=== PATIENT | female | born 1980 | race Caucasian/White ===

== ENCOUNTER 2018-07-17 07:04 | Inpatient (IN) ==
[2018-07-17] MEDS ORDERED: ONDANSETRON INJ 2 MG/ML 2 ML VIAL IV STA ×2 (07:12→08:57)
[2018-07-17] MEDS ORDERED: SODIUM CHLORIDE 0.9% 1000ML 2,000 ML IV SCH (07:15)
[2018-07-17] MEDS ORDERED: PROMETHAZINE 25 MG/51 ML BAG IV STA (07:33)
[2018-07-17 07:55] LABS: Basophils # (auto) 0.01 K/uL (0-0.2); Eosinophils # (auto) 0.22 K/uL (0-0.5); Eosinophils % (auto) 1.1 %; Hemoglobin 15.8 g/dL (12.0-16.0); Immature Granulocytes # (auto) 0.07 K/uL (0.00-0.02); Immature Granulocytes % (auto) 0.3 %; Lymphocytes # (auto) 0.44 K/uL (1.2-3.4); Lymphocytes % (auto) 2.1 %; Mean Corpuscular Hgb Conc 35.1 g/dL (32-36); Mean Corpuscular Volume 87.5 fL (80-100); Mean Platelet Volume 9.9 fL (7.4-10.4); Monocytes # (auto) 0.92 K/uL (0.11-0.59); Monocytes % (auto) 4.4 %; Neutrophils # (auto) 19.05 K/uL (1.4-6.5); Neutrophils % (auto) 92.1 %; Platelet Count 371 K/uL (130-400); RDW Coefficient of Variation 12.9 % (11.5-14.5); RDW Standard Deviation 41.2 fL (36.4-46.3); Red Blood Count 5.14 M/uL (4.2-5.4); White Blood Count 20.71 K/uL (4.8-10.8)
[2018-07-17 08:21] LABS: Albumin Globulin Ratio 0.9 (0.9-2); Albumin Level 3.8 gm/dl (3.4-5.0); BUN Creatinine Ratio 17.9 (10-20); Bilirubin,Total 0.4 mg/dl (0.2-1); Calcium 8.9 mg/dl (8.5-10.1); Creatinine Clr Calc Pharmacy 90.2 ml/min; Est GFR (African American) 92.1; Est GFR (Non-African American) 79.5; Globulin 4.1 gm/dl (2.5-4.0); Total Protein 7.9 gm/dl (6.4-8.2)
[2018-07-17] MEDS ORDERED: SODIUM CHLORIDE 0.9% 1000ML 1,000 ML IV ONE (08:57)
--- NOTE | 2018-07-17 09:01 | Emergency Department Note ---
ED Visit Note I took a history and examined the patient. I also coordinated management of the patient with Dr. Bermudez. .
[2018-07-17 09:18] LABS: Potassium 3.9 mmol/L (3.5-5.1)
[2018-07-17 09:35] LABS: Appearance Urine Clear (Clear); Bilirubin Urine Negative (Negative); Blood Urine Negative (Negative); Color Urine Yellow; Glucose Urine UA Negative (Negative); Ketones Urine Trace (Negative); Leukocyte Esterase Urine Negative (Negative); Nitrite Urine Negative (Negative); Protein Urine Negative (Negative); Specific Gravity Urine 1.016 (1.000-1.030); Urobilinogen Urine Negative (Negative); pH Urine 8.5 (4.5-7.5)
--- NOTE | 2018-07-17 10:15 | XRay Report ---
XR abdomen 2V w PA chest CLINICAL HISTORY: abd pain pain COMPARISON STUDY: 10/06/2014 FINDINGS: The soft tissues, psoas shadows, renal outlines and intestinal gas pattern appear normal. T here is no evidence for bowel obstruction. There is no evidence for free intraperitoneal air. No abno rmal abdominal calcifications are seen. A frontal view of the chest was performed and is unremarkable . IMPRESSION: Normal study. The above report was generated using voice recognition software. It may contain grammatical, syntax or spelling errors. Electronically signed by: Manuel Lester M.D. 07/17/2018 10:14 AM
[2018-07-17] MEDS ORDERED: IOVERSOL 100ml IV PRN (11:09)
[2018-07-17] MEDS ORDERED: PROCHLORPERAZINE 5 MG in SYRINGE 4 ML IV ONE (11:12)
[2018-07-17] MEDS ORDERED: DiphenhydrAMINE HCL 50 MG/ML VIAL IV STA (11:12)
--- NOTE | 2018-07-17 11:22 | CT Scan Report ---
CT abd pelvis IV con only CLINICAL HISTORY: Vomiting and abdominal pain COMPARISON STUDY: 04/16/2010 TECHNIQUE: The patient was scanned in a dynamic helical fashion during intravenous administration of 94 cc of Optiray 320. A dose lowering technique was utilized adhering to the principles of ALARA. CT DOSE: 764.48 mGy.cm FINDINGS: Lower chest: The heart is normal in size and configuration, without pericardial effusion. The lung ba ses and pleural spaces are clear. Liver: The contrast-enhanced liver is normal in size, contour, and attenuation. There is no intrahepa tic biliary ductal dilatation. The hepatic veins and portal veins are patent. Gallbladder: Unremarkable. Spleen: The spleen is borderline enlarged measuring 12.4 cm Pancreas: Unremarkable. Adrenal glands: Unremarkable. Kidneys: There is symmetric renal cortical enhancement. The kidneys are normal in size without hydron ephrosis. Bowel: There are multiple fluid-filled small bowel loops, without evidence for a transition. This is a nonspecific finding which could indicate a mild enteritis. There is no current evidence for a bowel obstruction. There is no pneumatosis. There is no pathologic interloop fluid. The appendix appears n ormal. There is no evidence of acute diverticulitis. Borderline gastric wall thickening may be second radha to a nondistended stomach. Peritoneum: There is no intraperitoneal free air or abdominal ascites. There is a small fat-containin g umbilical hernia. Vasculature: The abdominal aorta is normal in course and caliber. Adenopathy: None. Pelvic viscera: The bladder, and pelvic viscera are unremarkable. Skeletal structures: No destructive osseous lesions are seen. There is a stable L2 vertebral body [place] IMPRESSION: 1. No evidence of bowel obstruction. No evidence of free air 2. Normal appendix. No evidence of acute diverticulitis. 3. Multiple fluid-filled small bowel loops without evidence for a transition zone. The findings are n onspecific but could indicate a mild ileus or enteritis 4. Borderline gastric wall thickening Electronically signed by: Hiro Keith M.D. 07/17/2018 11:20 AM
[2018-07-17] MEDS ORDERED: PROCHLORPERAZINE 5 MG/ML 2 ML VIAL ONE (11:29)
--- NOTE | 2018-07-17 12:27 | History & Physical Report ---
Date of Service July 17, 2018 Assessment & Plan (1) Vomiting and diarrhea: (2) Cyclical vomiting: Pt presented to ER with onset of recurrent vomiting and 6 episodes diarrhea started last night. Diffuse abdominal cramping which improved in ER. Afebrile, P: 108, R: 16, BP: 131/87, 100% on RA In ER was given Compazine, Benadryl, Zofran x2 doses, Phenergan, 2 NSS with continued nausea and vomiting. CT ABD/PELVIS: 1. No evidence of bowel obstruction. No evidence of free air 2. Normal appendix. No evidence of acute diverticulitis. 3. Multiple fluid-filled small bowel loops without evidence for a transition zone. The findings are nonspecific but could indicate a mild ileus or enteritis 4. Borderline gastric wall thickening -admit med surg -NPO for now -IVF -pending c-diff and stool culture -zofran IV, phenergan rectal prn vomiting -continue amytriptyline and clonazepam HS -will try capsaicin cream to abdomen with pt using marijuana yesterday -GI consult, appreciate recommendations -monitor CBC, BMP (3) Leukocytosis: WBC: 20. Pt afebrile. CXR: no infiltrate. May be secondary to vomiting/stress but will r/o underlying infectious source -urine culture, c-diff, stool cultures pending -blood cultures pending -monitor CBC (4) Elevated glucose: Random glucose: 167 A1c in am (5) Anxiety and depression: -continue clonazepam HS DVT Prophylaxis -SCDs Follows with Dr Chris for routine care Pt was seen with Dr Jj. See addendum History of Present Illness Chief Complaint: Vomiting Primary Care Provider: Keshia Ospina Pt is 37 y/o F with PMH cyclical vomiting, anxiety, depression presented to ER with c/o vomiting and diarrhea. States approx 2 am today started with vomiting every 10-15 minutes reports 6 episodes of loose stools. Patient states also having diffuse abdominal cramping. Reports since in ER has not had any further diarrhea and reports abdomen is feeling better just feels "sore" which she thinks is from vomiting. She tried her zofran and phenergen orally without reli ef of vomiting. Pt states last night ate a hamburger for dinner. Denies recent travel. States at work some people had GI illness with N/V/D. Was on zithromax in 06/2018. Denies other antibiotic use. Pt states has been awhile since she had recurrences of cyclical vomiting. In past has followed with GI. Pt reports smokes marijauna approx once a month to help increase appetite and states Used marijuana yesterday and feels her vomiting symptoms are worse since. Reports that today she feels dizzy. Denies fever/chills, diaphoresis, hematemesis, melena, hematochezia, [place], syncope, vision changes, neck pain, CP, SOB, orthopnea, palpitations, cough, sore throat, choking, otalgia, rhinorrhea, paresthesias, weakness, extremity weakness, extremity edema, rashes, urinary symptoms. In ER was given compazine, benadryl IV, zofran x 2 doses, phenergan, 2L NSS. She had decreased abdominal cramping, however continued nausea and vomiting. Allergies Allergy/AdvReac Type Severity Reaction Status Date / Time metoclopramide Allergy Intermediate Itching/Upset Verified 07/17/18 09:04 stomach amoxicillin Allergy Mild UNK Verified 07/17/18 09:04 miconazole Allergy Unknown ALLERGIC Verified 07/17/18 09:04 TO TOPICAL YEAST INFECTION CREAM tioconazole Allergy Unknown REACTION Verified 07/17/18 09:04 TYPE NOT SPECIFIED STEROIDS AdvReac Unknown progestrone Uncoded 07/17/18 09:04 deficiency, causes Home Medications Home Medications Medication Instructions Recorded Confirmed Type acetaminophen 325 mg NJ Q6H PRN 07/17/18 07/17/18 History amitriptyline 25 mg PO HS 07/17/18 07/17/18 History clonazepam 0.5 mg PO HS 07/17/18 07/17/18 History clonazepam 0.5 mg PO UD PRN 07/17/18 07/17/18 History promethazine 25 mg PO Q6H PRN 07/17/18 07/17/18 History promethazine 25 mg NJ Q6H PRN 07/17/18 07/17/18 History ondansetron 8 mg PO Q8H PRN 7 Days #20 tab 07/20/18 Rx pantoprazole 40 mg PO BID 30 Days #60 tab 07/20/18 Rx Past Med/Surg History Medical History Elevated glucose (Chronic) Anxiety and depression (Chronic) Cyclic vomiting syndrome (Chronic) Surgical History History of esophagogastroduodenoscopy (EGD) (Chronic) History of nasal septoplasty (Chronic) Family History Other Lola's disease Social History Preferred Language: Kiswahili Beliefs That Will Affect Care: None Current Living Situation: Family Current Living Situation Comment: has daughter at home Other Information That Helps Us Care for You: No Feels Safe at Home: Yes Safety Concerns: Feels Safe At This Time Smoking Status: Never smoker Hx Alcohol Use: No Hx Substance Use: Yes Review of Systems All systems reviewed & are unremarkable except as noted in HPI & below Physical Exam Vital Signs (Past 24 Hours): Last Vital Signs Temp 36.6 C 07/17/18 07:06 Pulse 119 H 07/17/18 11:10 Resp 20 07/17/18 10:41 BP 160/111 H 07/17/18 11:10 Pulse Ox 100 07/17/18 11:10 Physical Exam: General: mild distress secondary to nausea and vomiting, WDWN Head: normocephalic, atraumatic Eyes: PERRL, EOM's intact, conjunctiva non-injected, anicteric ENT: normal inspection external ears, nose, mucous membranes dry Neck: supple, trachea midline, non-tender Lungs: clear, no respiratory distress, no wheezing/rhonchi/rales CV: RRR, no murmur, no pretibial edema Abd: normal BS, soft, diffuse tenderness to palpation Ext: no cyanosis, no calf tenderness Neuro: A&O x 3, no focal deficits noted, normal affect Skin: warm, dry Results & Data Laboratory Results Short CBC 07/17/18 Range/Units 07:42 WBC 20.71 H (4.8-10.8) K/uL Hgb 15.8 (12.0-16.0) g/dL Hct 45.0 (37-47) % Plt Count 371 (130-400) K/uL BMP 07/17/18 07/17/18 07:42 08:52 Sodium 137 Potassium 3.9 Chloride 107 Carbon Dioxide 20 L BUN 16 Creatinine 0.91 Glucose 167 H Calcium 8.9 Liver Function 07/17/18 07/17/18 Range/Units 07:42 08:52 Total Bilirubin 0.4 (0.2-1) mg/dl AST 13 L (15-37) U/L ALT 20 (12-78) U/L Alkaline Phosphatase 108 (45-117) U/L Albumin 3.8 (3.4-5.0) gm/dl Urine 07/17/18 Range/Units 09:25 Urine Color Yellow Urine Appearance Clear (Clear) Urine pH 8.5 H (4.5-7.5) Ur Specific [place] 1.016 (1.000-1.030) Urine Protein Negative (Negative) Urine Glucose (UA) Negative (Negative) Diagnostic Findings CXR/ABD XRAY: IMPRESSION: Normal study. CT ABD/PELVIS: IMPRESSION: 1. No evidence of bowel obstruction. No evidence of free air 2. Normal appendix. No evidence of acute diverticulitis. 3. Multiple fluid-filled small bowel loops without evidence for a transition zone. The findings are nonspecific but could indicate a mild ileus or enteritis 4. Borderline gastric wall thickening Supervising Physician Co-Signing Physician Notes 1. Nausea and vomiting-cyclical, poss enteritis vs ileus 2. Leukocytosis 3. Glucosuria 4. Obesity 5. Marajuana use 37 yo F with a h/o cyclical vomiting presents with two days of persistent nausea and vomiting with diarrhea. She has a h/o cyclical vomiting which reportedly is precipitated from stress, extreme excitement or after antibiotic use. She recently used azithromycin for an ear infection last month. 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 She recently traveled to [place] for her daughters friend birthday and returned yesterday. She reports smoking marajuana occasionally and yesterday. She denies any abdominal pain and physical exam is unremarkable other than an obese, ill-appearing female. Mother and daughter are present at the bedside. We discussed the CT results. Cont plan as above including bowel rest for now, then advancing diet as tolerated. Agree with checking for c-diff with h/o abx use. Agree with capsaicin to [place] nausea in setting of recent MJ use. Screen fro DMII with presence of glucosuria and h/o increased thirst. Appreciate GI recs. DO [place] (1) Leukocytosis Leukocytosis type: unspecified Qualified Code(s): D72.829 - Elevated white blood cell count, unspecified (2) Cyclical vomiting Nausea presence: with nausea Vomiting Intractability: intractable Qualified Code(s): G43.A1 - Cyclical vomiting, intractable
[2018-07-17] MEDS ORDERED: ACETAMINOPHEN 325 MG TAB PO PRN (14:01)
[2018-07-17] MEDS ORDERED: ONDANSETRON INJ 2 MG/ML 2 ML VIAL IV PRN (14:01)
[2018-07-17] MEDS ORDERED: PROMETHAZINE HCL 25 MG SUPP PR PRN (14:01)
--- NOTE | 2018-07-17 14:07 | Emergency Department Note ---
Entered by Ethel Wren acting as a scribe for History of Present Illness General Chief complaint: Vomiting Stated complaint: VOMITING,CHILLS,HOT/COLD Time Seen by Provider: 07/17/18 07:12 Source: patient History of Present Illness Provider complaint: vomiting and diarrhea Onset (ago): hour(s) (5.5) Location: abdomen Severity: similar to prior episodes Maximum Pain Intensity: 7 Associated symptoms: + other (nausea, abdominal pain, runny nose) Treatments prior to arrival: other (Zofran, Phenergan) The patient is a 37 year old female who presents to the Emergency Room with complaints of persistent vomiting and diarrhea beginning 5.5 hours ago. She reports she began feeling nauseous yesterday morning. The patient states she has been vomiting about every 10 minutes, mostly bile. She notes she has had about 6 episodes of diarrhea. The patient reports intermittent lower abdominal pain, that occasionally radiates to her back. She notes she urinated herself when trying to vomit. The patient states she has a runny nose. She notes her symptoms are similar to previous episodes, and reports a history of cyclic vomiting. The patient denies pain or burning with urination. She reports she has been taking Zofran and Phenergan for her symptoms. Home Medications Home Medications Medication Instructions Recorded Confirmed Type acetaminophen 325 mg UT Q6H PRN 07/17/18 07/17/18 History amitriptyline 25 mg PO HS 07/17/18 07/17/18 History clonazepam 0.5 mg PO HS 07/17/18 07/17/18 History clonazepam 0.5 mg PO UD PRN 07/17/18 07/17/18 History ondansetron 8 mg PO Q8H PRN 07/17/18 07/17/18 History promethazine 25 mg PO Q6H PRN 07/17/18 07/17/18 History promethazine 25 mg UT Q6H PRN 07/17/18 07/17/18 History Allergies Allergy/AdvReac Type Severity Reaction Status Date / Time metoclopramide Allergy Intermediate Itching/Upset Verified 07/17/18 09:04 stomach amoxicillin Allergy Mild UNK Verified 07/17/18 09:04 miconazole Allergy Unknown ALLERGIC Verified 07/17/18 09:04 TO TOPICAL YEAST INFECTION CREAM tioconazole Allergy Unknown REACTION Verified 07/17/18 09:04 TYPE NOT SPECIFIED STEROIDS AdvReac Unknown progestrone Uncoded 07/17/18 09:04 deficiency, causes Past Med/Surg History Medical History Cyclic vomiting syndrome (Chronic) Social History Preferred Language: Turkmen Communication Ability: Effective Mud Trucker Required: No Beliefs That Will Affect Care: None Current Living Situation: Family Current Living Situation Comment: has daughter at home Other Information That Helps Us Care for You: No Feels Safe at Home: Yes Safety Concerns: Feels Safe At This Time Smoking Status: Current some day smoker Hx Alcohol Use: Yes Hx Substance Use: Yes Review of Systems See HPI for pertinent positives & negatives. and A total of 10 systems reviewed and were otherwise negative Physical Exam Vital Signs Vital Signs - 24 hr 07/17/18 07:06 07/17/18 08:05 07/17/18 10:41 Temperature 36.6 C Temperature Source Oral Sepsis Recent Fever Within 48 Hours No Sepsis New/Unexplained Change in Mental Status No Sepsis Action Taken by Nursing No Action Required Pulse Rate 108 H Pulse Rate [Right Finger] 101 H 108 H Pulse Rhythm [Right Finger] Regular Respiratory Rate 16 20 20 Respiratory Effort / Characteristics Non-Labored Non-Labored Spontaneous Respiratory Depth Normal Normal Respiratory Pattern Regular Blood Pressure 131/87 Blood Pressure [Right Arm] 161/116 H 123/86 Blood Pressure Mean 101 Blood Pressure Mean [Right Arm] 131 98 Blood Pressure Position [Right Arm] Pulse Oximetry 100 99 96 Oxygen Delivery Method Room Air Room Air 07/17/18 11:10 07/17/18 12:30 07/17/18 13:00 Temperature Temperature Source Sepsis Recent Fever Within 48 Hours Sepsis New/Unexplained Change in Mental Status Sepsis Action Taken by Nursing Pulse Rate Pulse Rate [Right Finger] 119 H 107 H 107 H Pulse Rhythm [Right Finger] Respiratory Rate 14 Respiratory Effort / Characteristics Respiratory Depth Respiratory Pattern Blood Pressure Blood Pressure [Right Arm] 160/111 H 121/80 124/85 Blood Pressure Mean Blood Pressure Mean [Right Arm] 127 93 98 Blood Pressure Position [Right Arm] Pulse Oximetry 100 99 98 Oxygen Delivery Method Room Air Room Air Room Air 07/17/18 14:01 Temperature 37.2 C Temperature Source Oral Sepsis Recent Fever Within 48 Hours Sepsis New/Unexplained Change in Mental Status Sepsis Action Taken by Nursing Pulse Rate Pulse Rate [Right Finger] 103 H Pulse Rhythm [Right Finger] Respiratory Rate 18 Respiratory Effort / Characteristics Respiratory Depth Respiratory Pattern Blood Pressure Blood Pressure [Right Arm] 123/82 Blood Pressure Mean Blood Pressure Mean [Right Arm] 95 Blood Pressure Position [Right Arm] Lying Pulse Oximetry 98 Oxygen Delivery Method GENERAL: Sitting up in bed, alert, dry heaving, uncomfortable, non-toxic EYE EXAM: normal conjunctiva. OROPHARYNX: no exudate, no erythema, lips, buccal mucosa, and tongue normal and mucous membranes are dry NECK: supple, no nuchal rigidity, no adenopathy, non-tender LUNGS: Clear to auscultation. Normal chest wall mechanics HEART: no murmurs, S1 normal and S2 normal ABDOMEN: abdomen soft, non-tender, normo-active bowel, sounds, no masses, no rebound or guarding. BACK: Back is symmetrical on inspection and there is no deformity, no midline tenderness, no CVA tenderness. SKIN: no rashes and no bruising UPPER EXTREMITIES: upper extremities are grossly normal. LOWER EXTREMITIES: No pitting edema. NEURO EXAM: Normal sensorium, cranial nerves II-XII grossly intact, normal speech, no gross weakness of arms, no gross weakness of legs. Course ED COURSE: Vital signs were reviewed and showed tachycardia. The patients medical record was reviewed The above diagnostic studies were performed and reviewed. ED treatments and interventions as stated above. 0714:The patient was evaluated in room A9 by Dr. Guzman, the resident under my direction, and a complete history and physical examination were performed. 0727: I evaluated the patient in room A9, and a complete history and physical examination were performed. 1001: I reevaluated the patient and discussed her test results. 1145: I reviewed the patient's case [facility] She will evaluate the patient for further management. 1148: Upon reevaluation, the patient is resting. I discussed my findings with the patient and she understands and agrees with the treatment plan. Based on the patients age, coexisting illnesses, exam and lab findings the decision to treat as an inpatient was made. The patient remained stable while under my care. The patient will be evaluated for further management. Consultations Consultation #1: Katia Guerra PA-C, [facility] hospitalist Time: 11:45 Administered Medications Discontinued Medications Diphenhydramine HCl (Benadryl) 25 mg IV NOW STA Stop: 07/17/18 11:13 Last Admin: 07/17/18 11:36 Dose: 25 mg Documented by: [id number] Sodium Chloride (Nss 1000ml) 2,000 mls @ 999 mls/hr IV .Q2H1M JARON Stop: 07/17/18 09:15 Last Infusion: 07/17/18 09:14 Dose: 0 mls/hr Documented by: [id number] Admin: 07/17/18 07:51 Dose: 999 mls/hr Documented by: [id number] Promethazine HCl (Phenergan) 25 mg in 51 mls @ 204 mls/hr IV NOW STA Stop: 07/17/18 07:47 Last Infusion: 07/17/18 10:41 Dose: 0 mls/hr Documented by: [id number] Admin: 07/17/18 07:52 Dose: 204 mls/hr Documented by: [id number] Sodium Chloride (Nss 1000ml) 1,000 mls @ 999 mls/hr IV .Q1H1M ONE Stop: 07/17/18 09:57 Last Infusion: 07/17/18 10:40 Dose: 0 mls/hr Documented by: [id number] Admin: 07/17/18 09:20 Dose: 999 mls/hr Documented by: [id number] Prochlorperazine 5 mg/ Syringe 5 mls @ 5 mls/min IV ONE ONE Stop: 07/17/18 11:13 Last Admin: 07/17/18 11:36 Dose: 5 mls/min Documented by: [id number] Ioversol (Optiray 320 100ml) 94 ml IV ONCE PRN PRN Reason: Interaction Checking Stop: 07/21/18 11:08 Last Admin: 07/17/18 11:10 Dose: 94 ml Documented by: [id number] Ondansetron HCl (Zofran) 4 mg IV NOW STA Stop: 07/17/18 07:13 Last Admin: 07/17/18 07:51 Dose: 4 mg Documented by: [id number] Ondansetron HCl (Zofran) 4 mg IV NOW STA Stop: 07/17/18 08:58 Last Admin: 07/17/18 09:19 Dose: 4 mg Documented by: [id number] Prochlorperazine (Compazine) Confirm Administered Dose 10 mg .ROUTE .BrainSINS-MED ONE Stop: 07/17/18 11:30 Last Admin: 07/17/18 11:35 Dose: Not Given Documented by: [id number] Medical Decision Making Differential Diagnosis Differential diagnoses includes but is not limited to gastritis, peptic ulcer disease, GERD, gallbladder disease, pancreatitis, small bowel obstruction, acute coronary syndrome, pericarditis, ischemic bowel, irritable bowel disease, irritable bowel syndrome, appendicitis, diverticulitis, malignancy, hernia, urin radha tract infection, torsion, /ectopic , perforation, trauma, infectious. Medical Records Attestation: I reviewed the patient's medical records. Home Medications Current Medication List: was personally reviewed by me Laboratory Data Attestation: I reviewed the patient's lab results. Result diagrams: 07/17/18 07:42 07/17/18 08:52 Lab Results 07/17/18 07/17/18 07/17/18 Range/Units 07:42 07:42 08:52 WBC 20.71 H (4.8-10.8) K/uL RBC 5.14 (4.2-5.4) M/uL Hgb 15.8 (12.0-16.0) g/dL Hct 45.0 (37-47) % MCV 87.5 (80-100) fL MCH 30.7 (25-34) pg MCHC 35.1 (32-36) g/dL RDW Std Deviation 41.2 (36.4-46.3) fL RDW Coeff of Hung 12.9 (11.5-14.5) % Plt Count 371 (130-400) K/uL MPV 9.9 (7.4-10.4) fL Immature Gran % (Auto) 0.3 % Neut % (Auto) 92.1 % Lymph % (Auto) 2.1 % [place] % (Auto) 4.4 % Eos % (Auto) 1.1 % Baso % (Auto) 0.0 % Immature Gran # (Auto) 0.07 H (0.00-0.02) K/uL Neut # (Auto) 19.05 H (1.4-6.5) K/uL Lymph # (Auto) 0.44 L (1.2-3.4) K/uL [place] # (Auto) 0.92 H (0.11-0.59) K/uL Eos # (Auto) 0.22 (0-0.5) K/uL Baso # (Auto) 0.01 (0-0.2) K/uL Sodium 137 (136-145) mmol/L Potassium 3.9 (3.5-5.1) mmol/L Chloride 107 (98-107) mmol/L Carbon Dioxide 20 L (21-32) mmol/L Anion Gap 10.0 (3-11) BUN 16 (7-18) mg/dl Creatinine 0.91 (0.6-1.2) mg/dl Est Cr Clr Drug Dosing 90.2 ml/min Est GFR ( Amer) 92.1 Est GFR (Non-Af Amer) 79.5 BUN/Creatinine Ratio 17.9 (10-20) Glucose 167 H (70-99) mg/dl Calcium 8.9 (8.5-10.1) mg/dl Total Bilirubin 0.4 (0.2-1) mg/dl AST 13 L (15-37) U/L ALT 20 (12-78) U/L Alkaline Phosphatase 108 (45-117) U/L Total Protein 7.9 (6.4-8.2) gm/dl Albumin 3.8 (3.4-5.0) gm/dl Globulin 4.1 H (2.5-4.0) gm/dl Albumin/Globulin Ratio 0.9 (0.9-2) Lipase 62 L (73-393) U/L Urine Color Urine Appearance (Clear) Urine pH (4.5-7.5) Ur Specific [place] (1.000-1.030) Urine Protein (Negative) POC Urine Protein (Negative) Urine Glucose (UA) (Negative) POC Ur Glucose (UA) (Normal) Urine Ketones (Negative) POC Urine Ketones (Negative) Urine Blood (Negative) POC Urine Blood (Negative) Urine Nitrite (Negative) POC Urine Nitrite (Negative) Urine Bilirubin (Negative) POC Urine Bilirubin (Negative) Urine Urobilinogen (Negative) POC Urine Urobilinogen (Normal) Ur Leukocyte Esterase (Negative) POC U Leukocyte Esteras (Negative) POC Ur Test (NEG) 07/17/18 07/17/18 07/17/18 Range/Units 09:25 09:25 09:25 WBC (4.8-10.8) K/uL RBC (4.2-5.4) M/uL Hgb (12.0-16.0) g/dL Hct (37-47) % MCV (80-100) fL MCH (25-34) pg MCHC (32-36) g/dL RDW Std Deviation (36.4-46.3) fL RDW Coeff of Hung (11.5-14.5) % Plt Count (130-400) K/uL MPV (7.4-10.4) fL Immature Gran % (Auto) % Neut % (Auto) % Lymph % (Auto) % [place] % (Auto) % Eos % (Auto) % Baso % (Auto) % Immature Gran # (Auto) (0.00-0.02) K/uL Neut # (Auto) (1.4-6.5) K/uL Lymph # (Auto) (1.2-3.4) K/uL [place] # (Auto) (0.11-0.59) K/uL Eos # (Auto) (0-0.5) K/uL Baso # (Auto) (0-0.2) K/uL Sodium (136-145) mmol/L Potassium (3.5-5.1) mmol/L Chloride (98-107) mmol/L Carbon Dioxide (21-32) mmol/L Anion Gap (3-11) BUN (7-18) mg/dl Creatinine (0.6-1.2) mg/dl Est Cr Clr Drug Dosing ml/min Est GFR ( Amer) Est GFR (Non-Af Amer) BUN/Creatinine Ratio (10-20) Glucose (70-99) mg/dl Calcium (8.5-10.1) mg/dl Total Bilirubin (0.2-1) mg/dl AST (15-37) U/L ALT (12-78) U/L Alkaline Phosphatase (45-117) U/L Total Protein (6.4-8.2) gm/dl Albumin (3.4-5.0) gm/dl Globulin (2.5-4.0) gm/dl Albumin/Globulin Ratio (0.9-2) Lipase (73-393) U/L Urine Color Yellow Urine Appearance Clear (Clear) Urine pH 8.5 H (4.5-7.5) Ur Specific [place] 1.016 (1.000-1.030) Urine Protein Negative (Negative) POC Urine Protein Trace H (Negative) Urine Glucose (UA) Negative (Negative) POC Ur Glucose (UA) 50 H (Normal) Urine Ketones Trace H (Negative) POC Urine Ketones 1+ (Small) H (Negative) Urine Blood Negative (Negative) POC Urine Blood Negative (Negative) Urine Nitrite Negative (Negative) POC Urine Nitrite Positive H (Negative) Urine Bilirubin Negative (Negative) POC Urine Bilirubin Negative (Negative) Urine Urobilinogen Negative (Negative) POC Urine Urobilinogen Normal (Normal) Ur Leukocyte Esterase Negative (Negative) POC U Leukocyte Esteras Negative (Negative) POC Ur Test NEG (NEG) Imaging Data Radiologist's Impression: Radiology results as stated below per my review and the radiologist's interpretation: CT abd pelvis IV con only CLINICAL HISTORY: Vomiting and abdominal pain COMPARISON STUDY: 04/16/2010 TECHNIQUE: The patient was scanned in a dynamic helical fashion during intr avenous administration of 94 cc of Optiray 320. A dose lowering technique was utilized adhering to the principles of ALARA. CT DOSE: 764.48 mGy.cm FINDINGS: Lower chest: The heart is normal in size and configuration, without pericardial effusion. The lung bases and pleural spaces are clear. Liver: The contrast-enhanced liver is normal in size, contour, and attenuation. There is no intrahepatic biliary ductal dilatation. The hepatic veins and portal veins are patent. Gallbladder: Unremarkable. Spleen: The spleen is borderline enlarged measuring 12.4 cm Pancreas: Unremarkable. Adrenal glands: Unremarkable. Kidneys: There is symmetric renal cortical enhancement. The kidneys are normal in size without hydronephrosis. Bowel: There are multiple fluid-filled small bowel loops, without evidence for a transition. This is a nonspecific finding which could indicate a mild enteritis. There is no current evidence for a bowel obstruction. There is no pneumatosis. There is no pathologic interloop fluid. The appendix appears normal. There is no evidence of acute diverticulitis. Borderline gastric wall thickening may be secondary to a nondistended stomach. Peritoneum: There is no intraperitoneal free air or abdominal ascites. There is a small fat-containing umbilical hernia. Vasculature: The abdominal aorta is normal in course and caliber. Adenopathy: None. Pelvic viscera: The bladder, and pelvic viscera are unremarkable. Skeletal structures: No destructive osseous lesions are seen. There is a stable L2 vertebral body bone island IMPRESSION: 1. No evidence of bowel obstruction. No evidence of free air 2. Normal appendix. No evidence of acute diverticulitis. 3. Multiple fluid-filled small bowel loops without evidence for a transition zone. The findings are nonspecific but could indicate a mild ileus or enteritis 4. Borderline gastric wall thickening Electronically signed by: Hiro Keith M.D. 07/17/2018 11:20 AM XR abdomen 2V w PA chest CLINICAL HISTORY: abd pain pain COMPARISON STUDY: 10/06/2014 FINDINGS: The soft tissues, psoas shadows, renal outlines and intestinal gas pattern appear normal. There is no evidence for bowel obstruction. There is no evidence for free intraperitoneal air. No abnormal abdominal calcifications are seen. A frontal view of the chest was performed and is unremarkable. IMPRESSION: Normal study. The above report was generated using voice recognition software. It may contain grammatical, syntax or spelling errors. Electronically signed by: Manuel Lester M.D. 07/17/2018 10:14 AM Blood Pressure Blood Pressure Findings: Elevated blood pressure Blood Pressure Disposition: further management by hospitalist GIOVANNI Narrative Patient is a 37-year-old female who presents the ER with persistent nausea vomiting and some intermittent diarrhea. She does have a history of cyclic v omiting syndrome. Labs were obtained showed a leukocytosis of 20.7 thousand. No significant anemia. BMP with a slightly low CO2 of 20. Bilirubin LFTs and lipase is unremarkable. UA was negative. was negative. Patient was given IV fluids, multiple dose of IV Zofran, Phenergan, Compazine and Benadryl. She was still having intermittent dry heaves. CT abdomen pelvis was unremarkable patient was updated bedside. She was discussed with the hospitalist for further observation. Impression & Plan Cyclic vomiting syndrome, Leukocytosis Discharge Plan Visit Data *Final* Discharge Date/Time: 07/17/18 13:33 Chief Complaint: Vomiting Stated Complaint: VOMITING,CHILLS,HOT/COLD ED Provider: Ronal Bermudez ED Midlevel Provider: Jovany Guzman Discharge Problem: Cyclic vomiting syndrome, Leukocytosis Patient Disposition: Admitted As Inpatient Discharge Instructions Interventions: ED Discharge Assessment Last Done: 07/17/18 13:33 Discharge Problem: Cyclic vomiting syndrome Qualifiers: Vomiting Intractability: intractable Nausea presence: with nausea Qualified Code(s): G43.A1 - Cyclical vomiting, intractable Leukocytosis Qualifiers: Leukocytosis type: unspecified Qualified Code(s): D72.829 - Elevated white blood cell count, unspecified The scribe's documentation has been prepared under my direction and personally reviewed by me in its entirety. I confirm that the note above accurately reflects all work, treatment, procedures, and medical decision making performed by me.
[2018-07-17] MEDS: SODIUM CHLORIDE 0.9% 1000ML 1,000 ML IV SCH ×2 (15:25→23:53)
[2018-07-17] MEDS ORDERED: CAPSAICIN CR 0.075% 60 GM TUBE EXT ONE (15:30)
--- NOTE | 2018-07-17 15:52 | Gastrointestinal Consultation ---
Date of Consultation July 17, 2018 Assessment & Plan (1) Cyclic vomiting syndrome: Pt seems to be improving with IV fluids, bowel rest and antiemetics. Maintain amitriptyline 25mg and clonazepam at bedtime, even during hospitalization. May have clear liquids po. No need for repeat EGD or colonoscopy at this time. F/U in OP GI setting will likely recommend restarting L-carnitive and Co-enzyme Q10 for prevention of episodes. No marijuana (pt tells me very rare use, about 1-2 times/6 months). Still, we recommend no use. Present on Admission?: Yes Supervising Physician Co-Signing Physician Notes Late entry: Patient was seen and examined with COLIN Carbajal on 07/17. Her note reflects our findings and plan. History of Present Illness Reason for Consultation: vomiting, hx of cyclical vomiting Requesting Physician: Dr. Liu Attending Physician: Victor Manuel Liu MD History of Present Illness Ms. Cayla Medina is a 37 yr old femal with a hx of anxiety and cyclical vomiting who presented to the ED earlier today for nausea/vomiting, diarrhea which began early yesterday and persisted. On arrival, CT with small bowel with fluid filled loops suggesting ileus or enterits. WBC was 20. blood cx are positive. Urine was positive for nitrates. She had chills/sweats but typically has this with her episodes of cyclical vomiting. Since arrival here, she has not had any diarrhea and has not vomited since around 10 AM this morning. She has not had hematemesis or melena. She has episodes of nausea/vomiting about once monthly, but typically for only up to one day then resolution with ondansetron and phenergan. She most recently underwent EGD/EUS in 2017 with normal findings and colonoscopy in 2009 with internal hemorrhoids, otherwise normal. Allergies Allergy/AdvReac Type Severity Reaction Status Date / Time metoclopramide Allergy Intermediate Itching/Upset Verified 07/17/18 09:04 stomach amoxicillin Allergy Mild UNK Verified 07/17/18 09:04 miconazole Allergy Unknown ALLERGIC Verified 07/17/18 09:04 TO TOPICAL YEAST INFECTION CREAM tioconazole Allergy Unknown REACTION Verified 07/17/18 09:04 TYPE NOT SPECIFIED STEROIDS AdvReac Unknown progestrone Uncoded 07/17/18 09:04 deficiency, causes Home Medications Home Medications Medication Instructions Recorded Confirmed Type acetaminophen 325 mg PA Q6H PRN 07/17/18 07/17/18 History amitriptyline 25 mg PO HS 07/17/18 07/17/18 History clonazepam 0.5 mg PO HS 07/17/18 07/17/18 History clonazepam 0.5 mg PO UD PRN 07/17/18 07/17/18 History ondansetron 8 mg PO Q8H PRN 07/17/18 07/17/18 History promethazine 25 mg PO Q6H PRN 07/17/18 07/17/18 History promethazine 25 mg PA Q6H PRN 07/17/18 07/17/18 History Patient History Medical History Elevated glucose (Chronic) Anxiety and depression (Chronic) Cyclic vomiting syndrome (Chronic) Surgical History History of esophagogastroduodenoscopy (EGD) (Chronic) History of nasal septoplasty (Chronic) Family History Other [place]'s disease Social History Preferred Language: Serbian Communication Ability: Effective Green Hide Inspector Required: No Beliefs That Will Affect Care: None Current Living Situation: Family Current Living Situation Comment: has daughter at home Other Information That Helps Us Care for You: No Feels Safe at Home: Yes Safety Concerns: Feels Safe At This Time Smoking Status: Never smoker Hx Alcohol Use: No Hx Substance Use: Yes Review of Systems Respiratory: no cough, no chest congestion, no dyspnea and no wheezing Cardiovascular: no chest pain, no palpitations and no edema Gastrointestinal: + abdominal pain (mild), + nausea and + vomiting; no bloating, no early satiety and no heartburn Genitourinary (Female): no dysuria, no urinary frequency and no urinary hesitancy Integumentary: + acne; no rash and no lesions Neurologic: no unsteadiness and no falls Psychiatric: no depression and no hopelessness Endocrine: + fatigue (only since the nausea/vomiting episode began) Hematologic / Lymphatic: no easy bleeding, no easy bruising and no unexplained w eight loss Physical Exam Vital Signs (Past 24 Hours): Last Vital Signs Temp 37.2 C 07/17/18 14:01 Pulse 103 H 07/17/18 14:01 Resp 18 07/17/18 14:01 BP 123/82 07/17/18 14:01 Pulse Ox 98 07/17/18 14:01 Constitutional: WD/WN, vitals as above + obese Eyes: PERRL, conjunctivae normal, anicteric sclerae ENMT: external ear and nose normal, oropharynx normal Neck: trachea midline, no thyromegaly Respiratory: normal respiratory effort, lungs clear to auscultation Cardiovascular: RRR, no murmur, no edema Gastrointestinal (Abdomen): Inspection/Auscultation: abdomen normal to inspection Percussion/Palpation: + abdomen tender (mild, diffuse) and abdomen soft Skin: no rashes, warm and dry no jaundice Neurologic: PERRL, EOMI, accommodation nl, no face palsy, no dysarthria Psychiatric: A+Ox3, euthymic affect Results & Data Diagnostic Findings CT abd/pelvis with IV, no oral contrast on 07/17/18: 1. No evidence of bowel obstruction. No evidence of free air 2. Normal appendix. No evidence of acute diverticulitis. 3. Multiple fluid-filled small bowel loops without evidence for a transition zone. The findings are nonspecific but could indicate a mild ileus or enteritis 4. Borderline gastric wall thickening
[2018-07-17] MEDS: AMITRIPTYLINE HCL 25 MG TAB PO SCH (20:26)
[2018-07-17] MEDS: clonazePAM 0.5 MG TAB PO SCH (20:30)
[2018-07-18 06:32] LABS: Eosinophils # (auto) 0.12 K/uL (0-0.5); Eosinophils % (auto) 1.5 %; Hemoglobin 11.9 g/dL (12.0-16.0); Immature Granulocytes # (auto) 0.02 K/uL (0.00-0.02); Immature Granulocytes % (auto) 0.2 %; Lymphocytes # (auto) 1.01 K/uL (1.2-3.4); Lymphocytes % (auto) 12.5 %; Mean Corpuscular Volume 88.4 fL (80-100); Mean Platelet Volume 9.5 fL (7.4-10.4); Monocytes # (auto) 0.45 K/uL (0.11-0.59); Monocytes % (auto) 5.6 %; Neutrophils # (auto) 6.45 K/uL (1.4-6.5); Neutrophils % (auto) 80.2 %; Platelet Count 233 K/uL (130-400); RDW Coefficient of Variation 13.1 % (11.5-14.5); RDW Standard Deviation 42.5 fL (36.4-46.3); Red Blood Count 3.96 M/uL (4.2-5.4); White Blood Count 8.05 K/uL (4.8-10.8)
[2018-07-18 06:42] LABS: BUN Creatinine Ratio 14.9 (10-20); Calcium 7.8 mg/dl (8.5-10.1); Creatinine Clr Calc Pharmacy 160.9 ml/min; Est GFR (African American) 140.4; Est GFR (Non-African American) 121.1; Potassium 3.2 mmol/L (3.5-5.1)
[2018-07-18 07:21] LABS: Estimated Average Glucose 123 mg/dl; Hemoglobin A1C 5.9 % (4.5-5.6)
[2018-07-18] MEDS ORDERED: POTASSIUM CHLORIDE 20 MEQ TABCR PO STA (09:41)
--- NOTE | 2018-07-18 11:02 | Gastroenterology Progress Note ---
Date of Service July 18, 2018 Assessment & Plan (1) Cyclic vomiting syndrome: 37 year old female with history of CVS admitted w/ nausea and vomiting. No evidence of leukocytosis, stable HGB, normal PLT. Her LFTs and lipase were non- elevated. CT w/o evidence of bowel obstruction or free air but multiple fluid- filled small bowel loops without evidence for a transition zone. ?ileus. - KUB today - NPO for bowel rest but can trial clears as tolerated - IV PPI BID while admitted then resume PO - IVF - Antiemetics PRN - No current plan for endoscopy - Strict marijuana cessation Thank you for allowing us to participate in the care of this patient. Please call with any acute changes, questions or concerns. Please see addendum below with additional recommendation from my supervising physician. Supervising Physician Co-Signing Physician Notes Late entry: Patient was seen and examined on 07/18 with COLIN Hester whose note reflects our findings and plan. Subjective Pt was seen and evaluated, chart reviewed. Endorses less abd pain this AM. No further episdoes of vomiting. Does have mild nausea. No BM in 2 days which is unusual for her. Trialing clears presently. No fever, chills, CP, SOB. CT: No evidence of bowel obstruction. No evidence of free airNormal appendix. No evidence of acute diverticulitis.Multiple fluid-filled small bowel loops without evidence for a transition zone. The findings are nonspecific but could indicate a mild ileus or enteritis Borderline gastric wall thickening Constitutional: + fatigue; no fever and no body aches Respiratory: no cough, no dyspnea and no wheezing Cardiovascular: no chest pain, no chest pain at rest, no radiating jaw, neck or arm pain, no dyspnea and no dyspnea on exertion Gastrointestinal: + abdominal pain (mild), + nausea and + constipation; no bloating, no early satiety, no heartburn and no vomiting Integumentary: + acne; no rash and no lesions Endocrine: + fatigue (only since the nausea/vomiting episode began) Physical Exam Vital Signs (Past 24 Hours): Last Vital Signs Temp 36.5 C 07/18/18 07:43 Pulse 95 H 07/18/18 07:43 Resp 20 07/18/18 07:43 BP 116/82 07/18/18 07:43 Pulse Ox 97 07/18/18 07:43 Constitutional: well developed, well nourished and cooperative; no acute distress Respiratory: normal respiratory effort, lungs clear to auscultation Cardiovascular: RRR, no murmur, no edema Gastrointestinal (Abdomen): Inspection/Auscultation: + abnormal bowel sounds (hypoactive x 4) Percussion/Palpation: + abdomen tender and abdomen soft; no guarding and abdomen not rigid Skin: no rashes, warm and dry Results & Data Laboratory Results 07/18/18 07/18/18 07/18/18 Range/Units 06:12 06:12 06:12 WBC 8.05 D (4.8-10.8) K/uL RBC 3.96 L (4.2-5.4) M/uL Hgb 11.9 L D (12.0-16.0) g/dL Hct 35.0 L (37-47) % MCV 88.4 (80-100) fL MCH 30.1 (25-34) pg MCHC 34.0 (32-36) g/dL RDW Std Deviation 42.5 (36.4-46.3) fL RDW Coeff of Hung 13.1 (11.5-14.5) % Plt Count 233 (130-400) K/uL MPV 9.5 (7.4-10.4) fL Immature Gran % (Auto) 0.2 % Neut % (Auto) 80.2 % Lymph % (Auto) 12.5 % Moody % (Auto) 5.6 % Eos % (Auto) 1.5 % Baso % (Auto) 0.0 % Immature Gran # (Auto) 0.02 (0.00-0.02) K/uL Neut # (Auto) 6.45 (1.4-6.5) K/uL Lymph # (Auto) 1.01 L (1.2-3.4) K/uL Moody # (Auto) 0.45 (0.11-0.59) K/uL Eos # (Auto) 0.12 (0-0.5) K/uL Baso # (Auto) 0.00 (0-0.2) K/uL Sodium 141 (136-145) mmol/L Potassium 3.2 L D (3.5-5.1) mmol/L Chloride 113 H (98-107) mmol/L Carbon Dioxide 22 (21-32) mmol/L Anion Gap 7.0 (3-11) BUN 8 D (7-18) mg/dl Creatinine 0.51 L D (0.6-1.2) mg/dl Est Cr Clr Drug Dosing 160.9 ml/min Est GFR ( Amer) 140.4 Est GFR (Non-Af Amer) 121.1 BUN/Creatinine Ratio 14.9 (10-20) Glucose 103 H (70-99) mg/dl Estimat Average Glucose 123 mg/dl Hemoglobin A1c 5.9 H (4.5-5.6) % Calcium 7.8 L (8.5-10.1) mg/dl POC Urine pH 07/17/18 Range/Units 09:25 WBC (4.8-10.8) K/uL RBC (4.2-5.4) M/uL Hgb (12.0-16.0) g/dL Hct (37-47) % MCV (80-100) fL MCH (25-34) pg MCHC (32-36) g/dL RDW Std Deviation (36.4-46.3) fL RDW Coeff of Hung (11.5-14.5) % Plt Count (130-400) K/uL MPV (7.4-10.4) fL Immature Gran % (Auto) % Neut % (Auto) % Lymph % (Auto) % Moody % (Auto) % Eos % (Auto) % Baso % (Auto) % Immature Gran # (Auto) (0.00-0.02) K/uL Neut # (Auto) (1.4-6.5) K/uL Lymph # (Auto) (1.2-3.4) K/uL Moody # (Auto) (0.11-0.59) K/uL Eos # (Auto) (0-0.5) K/uL Baso # (Auto) (0-0.2) K/uL Sodium (136-145) mmol/L Potassium (3.5-5.1) mmol/L Chloride (98-107) mmol/L Carbon Dioxide (21-32) mmol/L Anion Gap (3-11) BUN (7-18) mg/dl Creatinine (0.6-1.2) mg/dl Est Cr Clr Drug Dosing ml/min Est GFR ( Amer) Est GFR (Non-Af Amer) BUN/Creatinine Ratio (10-20) Glucose (70-99) mg/dl Estimat Average Glucose mg/dl Hemoglobin A1c (4.5-5.6) % Calcium (8.5-10.1) mg/dl POC Urine pH Not Reportable
--- NOTE | 2018-07-18 12:13 | XRay Report ---
KUB CLINICAL HISTORY: Nausea and vomiting. FINDINGS: 2 AP supine abdominal radiographs are compared to abdominal radiographs and CT dated 07/18/19 19. There is a nonobstructed abdominal bowel gas pattern. Small bowel loops measure a maximum of 2.2 cm in diameter. Mild colonic fecal retention is observed. No abnormal abdominal calcifications are id entified. Pelvic phleboliths are observed. The bony structures appear intact. IMPRESSION: Nonobstructed abdominal bowel gas pattern. Electronically signed by: Freddy Diop M.D. 07/18/2018 12:12 PM
--- NOTE | 2018-07-18 18:44 | Hospitalist Progress Note ---
Date of Service July 18, 2018 Assessment & Plan (1) Vomiting and diarrhea: (2) Cyclical vomiting: Cyclical Vomiting Syndrome --CT ABD: No evidence of bowel obstruction. No evidence of free air. Normal appendix. No evidence of acute diverticulitis. Multiple fluid-filled small bowel loops without evidence for a transition zone. The findings are nonspecific but could indicate a mild ileus or enteritis. Borderline gastric wall thickening --KUB:Nonobstructed abdominal bowel gas pattern. Advance diet as tolerated Continue PPI BID Antiemetics PRN Dye Mixer to quit marijuana use Appreciate GI Input No plan for endoscopy Stool studies:pending continue amytriptyline and clonazepam HS (3) Leukocytosis: CXR: no infiltrate. WBC count normalized Stool studies pending FU Cultures (4) Elevated glucose: Prediabetes A1c:5.9 Counselled diet, exercise (5) Anxiety and depression: continue home meds DVT Px SCDs Disposition: Expect to discharge home when stable Subjective Patient is seen and examined at bedside Doing better today Mild abd soreness Feels tired Denies chest pain, SOB, dizziness Vomiting resolved tolerating diet Physical Exam Vital Signs (Past 24 Hours): Last Vital Signs Temp 36.8 C 07/18/18 16:15 Pulse 87 07/18/18 16:15 Resp 20 07/18/18 16:15 BP 119/81 07/18/18 16:15 Pulse Ox 98 07/18/18 16:15 Physical Exam: Physical Exam: Vitals signs as noted above General Appearance:Moderately built and nourished, no apparent distress Head: normocephalic, Atraumatic Eyes: normal inspection, EOMI Neck: supple, Trachea midline Respiratory/Chest: Normal breath sounds, CTA Cardiovascular: S1, S2, No murmur Abdomen/GI:Soft, mild tender, Bowel sounds present Extremities/Musculoskelatal:normal inspection, no edema Neurologic/Psych:AAOX3, grossly no focal neurological deficits Skin: normal color, warm Results & Data Laboratory Results Short CBC 07/18/18 Range/Units 06:12 WBC 8.05 D (4.8-10.8) K/uL Hgb 11.9 L D (12.0-16.0) g/dL Hct 35.0 L (37-47) % Plt Count 233 (130-400) K/uL BMP 07/18/18 06:12 Sodium 141 Potassium 3.2 L D Chloride 113 H Carbon Dioxide 22 BUN 8 D Creatinine 0.51 L D Glucose 103 H Calcium 7.8 L Diagnostic Findings KUB: Nonobstructed abdominal bowel gas pattern. (1) Cyclical vomiting Nausea presence: with nausea Vomiting Intractability: intractable Qualified Code(s): G43.A1 - Cyclical vomiting, intractable (2) Leukocytosis Leukocytosis type: unspecified Qualified Code(s): D72.829 - Elevated white blood cell count, unspecified
[2018-07-18] MEDS: clonazePAM 0.5 MG TAB PO SCH (21:16)
[2018-07-18] MEDS: PANTOprazole 40 MG TAB PO SCH (21:16)
[2018-07-18] MEDS: AMITRIPTYLINE HCL 25 MG TAB PO SCH (21:51)
[2018-07-19 07:27] LABS: Hematocrit (blood only) 36.9 % (37-47); Hemoglobin 12.7 g/dL (12.0-16.0); Mean Corpuscular Hgb Conc 34.4 g/dL (32-36); Mean Corpuscular Volume 88.3 fL (80-100); Mean Platelet Volume 9.5 fL (7.4-10.4); Platelet Count 245 K/uL (130-400); RDW Standard Deviation 42.2 fL (36.4-46.3); Red Blood Count 4.18 M/uL (4.2-5.4); White Blood Count 5.75 K/uL (4.8-10.8)
[2018-07-19] MEDS: PANTOprazole 40 MG TAB PO SCH ×2 (07:45→19:55)
[2018-07-19 08:02] LABS: BUN Creatinine Ratio 9.1 (10-20); Calcium 8.6 mg/dl (8.5-10.1); Creatinine Clr Calc Pharmacy 146.5 ml/min; Est GFR (African American) 136.1; Est GFR (Non-African American) 117.5; Magnesium 2.3 mg/dl (1.8-2.4); Potassium 3.4 mmol/L (3.5-5.1)
[2018-07-19] MEDS ORDERED: POTASSIUM CHLORIDE 10 MEQ TABCR PO STA (09:09)
[2018-07-19] MEDS ORDERED: BUTALBITAL/ACETAMIN/CAFFEINE TAB PO PRN (11:52)
[2018-07-19] MEDS: clonazePAM 0.5 MG TAB PO SCH (19:54)
[2018-07-19] MEDS: AMITRIPTYLINE HCL 25 MG TAB PO SCH (19:55)
--- NOTE | 2018-07-19 21:12 | Hospitalist Progress Note ---
Date of Service July 19, 2018 Assessment & Plan (1) Vomiting and diarrhea: (2) Cyclical vomiting: Cyclical Vomiting Syndrome --CT ABD: No evidence of bowel obstruction. No evidence of free air. Normal appendix. No evidence of acute diverticulitis. Multiple fluid-filled small bowel loops without evidence for a transition zone. The findings are nonspecific but could indicate a mild ileus or enteritis. Borderline gastric wall thickening --KUB:Nonobstructed abdominal bowel gas pattern. Advance diet as tolerated Continue PPI BID Antiemetics PRN Lion Hunter to quit marijuana use Appreciate GI Input No plan for endoscopy Stool studies:Negative continue amytriptyline and clonazepam HS Migraine: Fioricet PRN (3) Leukocytosis: CXR: no infiltrate. WBC count normalized Cultures: Negative (4) Elevated glucose: Prediabetes A1c:5.9 Counselled diet, exercise (5) Anxiety and depression: continue home meds DVT Px SCDs Disposition: Expect to discharge home when stable Subjective Patient is seen and examined at bedside Reports migraine headache and nausea No other complaints Tolerating diet Denies chest pain, SOB, dizziness Physical Exam Vital Signs (Past 24 Hours): Last Vital Signs Temp 36.6 C 07/19/18 15:34 Pulse 78 07/19/18 15:34 Resp 18 07/19/18 15:34 BP 110/76 07/19/18 15:34 Pulse Ox 98 07/19/18 15:34 Physical Exam: Physical Exam: Vitals signs as noted above General Appearance:Moderately built and nourished, no apparent distress Head: normocephalic, Atraumatic Eyes: normal inspection, EOMI Neck: supple, Trachea midline Respiratory/Chest: Normal breath sounds, CTA Cardiovascular: S1, S2, No murmur Abdomen/GI:Soft, mild tender, Bowel sounds present Extremities/Musculoskelatal:normal inspection, no edema Neurologic/Psych:AAOX3, grossly no focal neurological deficits Skin: normal color, warm Results & Data Laboratory Results Short CBC 07/19/18 Range/Units 07:00 WBC 5.75 (4.8-10.8) K/uL Hgb 12.7 (12.0-16.0) g/dL Hct 36.9 L (37-47) % Plt Count 245 (130-400) K/uL BMP 07/19/18 07:00 Sodium 141 Potassium 3.4 L Chloride 111 H Carbon Dioxide 23 BUN 5 L Creatinine 0.56 L Glucose 93 Calcium 8.6 (1) Cyclical vomiting Nausea presence: with nausea Vomiting Intractability: intractable Qualified Code(s): G43.A1 - Cyclical vomiting, intractable (2) Leukocytosis Leukocytosis type: unspecified Qualified Code(s): D72.829 - Elevated white blood cell count, unspecified
[2018-07-20 07:30] LABS: BUN Creatinine Ratio 12.4 (10-20); Calcium 9.2 mg/dl (8.5-10.1); Creatinine Clr Calc Pharmacy 118.9 ml/min; Est GFR (African American) 127.1; Est GFR (Non-African American) 109.7; Potassium 3.6 mmol/L (3.5-5.1)
[2018-07-20] MEDS: PANTOprazole 40 MG TAB PO SCH (08:31)
[2018-07-20] MEDS ORDERED: EPINEPHRINE ADULT AUTO-INJECT 0.3 MG SYR IM PRN (12:41)
--- NOTE | 2018-07-20 13:55 | Hospitalist Progress Note ---
Date of Service July 20, 2018 Assessment & Plan (1) Vomiting and diarrhea: (2) Cyclical vomiting: Cyclical Vomiting Syndrome --CT ABD: No evidence of bowel obstruction. No evidence of free air. Normal appendix. No evidence of acute diverticulitis. Multiple fluid-filled small bowel loops without evidence for a transition zone. The findings are nonspecific but could indicate a mild ileus or enteritis. Borderline gastric wall thickening --KUB:Nonobstructed abdominal bowel gas pattern. Advance diet as tolerated Continue PPI BID Antiemetics PRN [employer]st to quit marijuana use Appreciate GI Input No plan for endoscopy Stool studies:Negative continue amytriptyline and clonazepam HS Symptoms resolved Migraine: Fioricet PRN Headache resolved (3) Leukocytosis: CXR: no infiltrate. WBC count normalized Cultures: Negative (4) Elevated glucose: Prediabetes A1c:5.9 Counselled diet, exercise (5) Anxiety and depression: continue home meds DVT Px SCDs Disposition: Expect to discharge home when stable Subjective Patient is seen and examined at bedside Doing well today Headache, nausea, vomiting resolved Denies chest pain, SOB, dizziness, abd pain Physical Exam Vital Signs (Past 24 Hours): Last Vital Signs Temp 36.8 C 07/20/18 07:50 Pulse 71 07/20/18 07:50 Resp 20 07/20/18 07:50 BP 109/70 07/20/18 07:50 Pulse Ox 98 07/20/18 07:50 Physical Exam: Physical Exam: Vitals signs as noted above General Appearance:Moderately built and nourished, no apparent distress Head: normocephalic, Atraumatic Eyes: normal inspection, EOMI Neck: supple, Trachea midline Respiratory/Chest: Normal breath sounds, CTA Cardiovascular: S1, S2, No murmur Abdomen/GI:Soft, non tender, Bowel sounds present Extremities/Musculoskelatal:normal inspection, no edema Neurologic/Psych:AAOX3, grossly no focal neurological deficits Skin: normal color, warm Results & Data Laboratory Results [facility] 07/20/18 06:50 Sodium 139 Potassium 3.6 Chloride 110 H Carbon Dioxide 24 BUN 9 Creatinine 0.69 Glucose 98 Calcium 9.2 (1) Cyclical vomiting Nausea presence: with nausea Vomiting Intractability: intractable Qualified Code(s): G43.A1 - Cyclical vomiting, intractable (2) Leukocytosis Leukocytosis type: unspecified Qualified Code(s): D72.829 - Elevated white blood cell count, unspecified
--- NOTE | 2018-07-20 14:04 | Discharge Summary ---
Date of Service July 20, 2018 Admission HPI Per Admitting Provider Pt is 37 y/o F with PMH cyclical vomiting, anxiety, depression presented to ER with c/o vomiting and diarrhea. States approx 2 am today started with vomiting every 10-15 minutes reports 6 episodes of loose stools. Patient states also having diffuse abdominal cramping. Reports since in ER has not had any further diarrhea and reports abdomen is feeling better just feels "sore" which she thinks is from vomiting. She tried her zofran and phenergen orally without relief of vomiting. Pt states last night ate a hamburger for dinner. Denies recent travel. States at work some people had GI illness with N/V/D. Was on zi thromax in 06/2018. Denies other antibiotic use. Pt states has been awhile since she had recurrences of cyclical vomiting. In past has followed with GI. Pt reports smokes marijauna approx once a month to help increase appetite and states Used marijuana yesterday and feels her vomiting symptoms are worse since. Reports that today she feels dizzy. Denies fever/chills, diaphoresis, hematemesis, melena, hematochezia, BENTLEY, syncope, vision changes, neck pain, CP, SOB, orthopnea, palpitations, cough, sore throat, choking, otalgia, rhinorrhea, paresthesias, weakness, extremity weakness, extremity edema, rashes, urinary symptoms. In ER was given compazine, benadryl IV, zofran x 2 doses, phenergan, 2L NSS. She had decreased abdominal cramping, however continued nausea and vomiting. Admission Exam Per Admitting Provider General: mild distress secondary to nausea and vomiting, WDWN Head: normocephalic, atraumatic Eyes: PERRL, EOM's intact, conjunctiva non-injected, anicteric ENT: normal inspection external ears, nose, mucous membranes dry Neck: supple, trachea midline, non-tender Lungs: clear, no respiratory distress, no wheezing/rhonchi/rales CV: RRR, no murmur, no pretibial edema Abd: normal BS, soft, diffuse tenderness to palpation Ext: no cyanosis, no calf tenderness Neuro: A&O x 3, no focal deficits noted, normal affect Skin: warm, dry Principal Diagnosis Discharge Information Discharge Diagnosis Nausea and Vomiting Migraine Discharge Goals Decrease discomfort,Improve function,Improve disease control Discharge Activity Limitations Resume your previous activity Discharge Data Allergies Allergy/AdvReac Type Severity Reaction Status Date / Time metoclopramide Allergy Intermediate Itching/Upset Verified 07/17/18 09:04 stomach amoxicillin Allergy Mild UNK Verified 07/17/18 09:04 miconazole Allergy Unknown ALLERGIC Verified 07/17/18 09:04 TO TOPICAL YEAST INFECTION CREAM tioconazole Allergy Unknown REACTION Verified 07/17/18 09:04 TYPE NOT SPECIFIED STEROIDS AdvReac Unknown progestrone Uncoded 07/17/18 09:04 deficiency, causes Consultations 07/17/18 11:42 ED Decision to Admit Stat 07/17/18 14:01 Consult Gastroenterology Routine Procedures Performed CT ABD: 1. No evidence of bowel obstruction. No evidence of free air 2. Normal appendix. No evidence of acute diverticulitis. 3. Multiple fluid-filled small bowel loops without evidence for a transition zone. The findings are nonspecific but could indicate a mild ileus or enteritis 4. Borderline gastric wall thickening KUB: Nonobstructed abdominal bowel gas pattern. Chest X ray: Normal study. Ordered Studies 07/17/18 10:21 CT abd pelvis IV con only Stat Hospital Course (1) Vomiting and diarrhea: (2) Cyclical vomiting: Cyclical Vomiting Syndrome --CT ABD: No evidence of bowel obstruction. No evidence of free air. Normal appendix. No evidence of acute diverticulitis. Multiple fluid-filled small bowel loops without evidence for a transition zone. The findings are nonspecific but could indicate a mild ileus or enteritis. Borderline gastric wall thickening --KUB:Nonobstructed abdominal bowel gas pattern. Advance diet as tolerated Continue PPI BID Antiemetics PRN Connie Scratcher to quit marijuana use Appreciate GI Input No plan for endoscopy Stool studies:Negative continue amytriptyline and clonazepam HS Symptoms resolved Migraine: Fioricet PRN Headache resolved (3) Leukocytosis: CXR: no infiltrate. WBC count normalized Cultures: Negative (4) Elevated glucose: Prediabetes A1c:5.9 Counselled diet, exercise (5) Anxiety and depression: continue home meds DVT Px SCDs Disposition: Expect to discharge home when stable Total Time Total Time Spent Total Time Spent (In Minutes): 36 minutes Total Time Includes: Examination of the Patient, Discharge Planning, Medication Reconciliation, Communication With Other Providers and Other Discharge Plan Discharge Items Patient Disposition: Home - Self-Care Reason For Visit: VOMITING Discharge Diagnosis: Nausea and Vomiting Migraine Discharge Goals: Decrease discomfort, Improve disease control and Improve function Activity: Resume your previous activity Non-emergency contact: Primary Care Provider and Construction Equipment Operator Call non-emergency contact if: you have any medication questions, your symptoms worsen, your pain is not controlled, your pain is worsening, your pain is unusual for you, your pain is concerning for you and you have a fever Follow-up/Referrals: Keshia Ospina [Primary Care Provider] - Diet: Regular Addtl Provider Instructions: Follow up with your PCP on 07/25/18 at 12:45pm Follow up with your Construction Equipment Operator as needed Quit using Marijuana as advised Seek immediate medical attention if your symptoms reoccur or worsen Prescriptions: New pantoprazole 40 mg Tablet,Delayed Release (Dr/Ec) 40 mg PO BID 30 Days Qty: 60 RF: 0 Continued acetaminophen 325 mg Suppository 325 mg AK Q6H PRN (Reason: pain/fever) RF: 0 promethazine 25 mg Suppository 25 mg AK Q6H PRN (Reason: Nausea) RF: 0 clonazepam 0.5 mg tablet 0.5 mg PO HS RF: 0 clonazepam 0.5 mg tablet 0.5 mg PO UD PRN (Reason: Anxiety) RF: 0 amitriptyline 25 mg tablet 25 mg PO HS RF: 0 promethazine 25 mg Tablet 25 mg PO Q6H PRN (Reason: Nausea) RF: 0 ondansetron 8 mg Tablet,Disintegrating 8 mg PO Q8H PRN (Reason: Nausea) 7 Days Qty: 20 RF: 0 Stand-Alone Forms: [facility], Work/School Release (Inpt) Discharge Orders: Discharge Order (Routine); Ordered 07/20/18 Ordered By: Raghavendra Peterson Admission Data Admit Date/Time: 07/19/18 16:09 Attending Provider: Raghavendra Peterson Admit Provider: Nichole Jj Primary Care Provider: Keshia Ospina. Other Providers: Connie Rodriguez ; Nichole Jj ; Victor Manuel Liu Service: Medical Other Interventions: Discharge Summary Assessment (RN) Last Done: 07/20/18 14:21 Pending Studies at Discharge: No DC Date/Time DO NOT enter until pt leaves facility: 07/20/18 14:47
== END 2018-07-20 14:47 | disposition home or self-care (01) | DRG 103 ==
LOC: 4W 07:04 → ED 07:04 → SUATTDRO 12:24 → 4W 13:33